=== PATIENT | female | born 1985 ===

== ENCOUNTER 2023-09-02 04:31 | Day surgery (SDC) | payer OTHER ==
[2023-08-30 15:14] VITALS: BMI 39.9
[~2023-09-02 04:31] MED LIST: ACETAMINOPHEN 500 MG TABLET (FP) PO PRN
[2023-09-02] MEDS ORDERED: BUPIVACAINE HCL/PF 0.75% 10 ML VIAL ONE (07:35)
[2023-09-02] MEDS ORDERED: LIDOCAINE HCL/PF 1% SDV 5ML VIAL ONE (07:35)
[2023-09-02] MEDS: BUPIVACAINE HCL/PF 0.75% 10 ML VIAL CAUD ONE ×2 (14:17)
[2023-09-02] MEDS: LIDOCAINE HCL 1% PRESERVATIVE FREE - 30ML VIAL IJ ONE ×2 (14:17)
[2023-09-02] MEDS ORDERED: ACETAMINOPHEN 500 MG TABLET (FP) ONE (15:15)
[2023-09-02] MEDS: ACETAMINOPHEN 500 MG TABLET (FP) PO PRN (15:17)
[2023-09-02 15:31] VITALS: RESP 18
[2023-09-02 16:04] VITALS: BP 120/73; PULSE 72; TEMP 98
== END 2023-09-02 15:53 | disposition home or self-care (01) ==
LOC: JASU-SURG 04:31
PROVIDERS: ATTEND Pain Medicine Pain Medicine
PROC: 3E0T33Z Introduction of Anti-inflammatory into Peripheral Nerves and Plexi, Percutaneous Approach (ICD-10-PCS; 2023-09-02)
PROC: 3E0T3BZ Introduction of Anesthetic Agent into Peripheral Nerves and Plexi, Percutaneous Approach (ICD-10-PCS; principal; 2023-09-02 13:30)
DX: M47.816 Spondylosis without myelopathy or radiculopathy, lumbar region (principal)
CPT/HCPCS: 76000-TC-FY; 81025